=== PATIENT | male | born 1960 | race Caucasian/White ===

== ENCOUNTER 2020-07-01 15:16 | Outpatient (REF) | payer BC, SELFPAY | END 2020-07-01 15:17 | disposition home or self-care (01) | LOC: HO.LAB 15:16 | PROVIDERS: Visit Provider Urology | DX: R97.20 Elevated prostate specific antigen [PSA] (principal) | CPT/HCPCS: 84153 ==

== ENCOUNTER 2021-09-07 15:23 | Outpatient (REF) | payer BC, SELFPAY ==
[2021-09-07 16:48] LABS: PSA,Total (Free>4and<10) 2.92 ng/mL (0.00-4.00)
== END 2021-09-07 15:24 | disposition home or self-care (01) ==
LOC: HO.LAB 15:23
PROVIDERS: Visit Provider Urology
DX: R97.20 Elevated prostate specific antigen [PSA] (principal); Z12.5 Encounter for screening for malignant neoplasm of prostate
CPT/HCPCS: 36415; 84153

== ENCOUNTER → 2021-09-10 08:24 | Outpatient (BNVA) | payer BC, SELFPAY | PROVIDERS: Visit Provider Urology ==

== ENCOUNTER 2022-09-05 13:12 | Outpatient (REF) | payer BC, SELFPAY ==
[2022-09-05 15:12] LABS: Prostate Specific Antigen 5.12 ng/mL (<0.05-4.0)
== END 2022-09-05 13:13 | disposition home or self-care (01) ==
LOC: HO.LAB 13:12
PROVIDERS: Visit Provider Urology
DX: Z12.5 Encounter for screening for malignant neoplasm of prostate (principal); N40.1 Benign prostatic hyperplasia with lower urinary tract symptoms; N13.8 Other obstructive and reflux uropathy
CPT/HCPCS: 36415; 84153

== ENCOUNTER → 2022-09-09 09:47 | Outpatient (BNVA) | payer BC, SELFPAY | PROVIDERS: PCP Physician Assistant; Visit Provider Urology | DX: R97.20 Elevated prostate specific antigen [PSA] (principal) | CPT/HCPCS: 51798 ==

== ENCOUNTER 2022-10-25 11:42 | Outpatient (REF) | payer BC, SELFPAY ==
--- NOTE | ~2022-10-25 | US_ITS ---
EXAMINATION: US PELVIS LIMITED (BLADDER) CLINICAL INFORMATION: Poor urinary stream. COMPARISON: None available. TECHNIQUE: Real-time imaging of the bladder. Technically somewhat limited study secondary to patient movement from discomfort/over-distension. FINDINGS: The bladder is well-distended. There is a 1.6 cm mobile stone noted within the bladder. Bilateral ureteral jets are demonstrated. Prevoid bladder volume is 314 mL. Postvoid bladder volume is 100 mL. The prostate gland measures 6.1 x 4.9 x 5.0 cm for a volume of 78 mL. US/US bladder IMPRESSION: 1. 1.6 cm mobile stone within the bladder. 2. Prominent post void bladder residual of 78 mL. 3. Enlarged prostate gland.
== END 2022-10-25 11:43 | disposition home or self-care (01) ==
LOC: HO.US 11:42
PROVIDERS: PCP Physician Assistant; Visit Provider Urology
DX: N40.1 Benign prostatic hyperplasia with lower urinary tract symptoms (principal); R39.12 Poor urinary stream; N13.8 Other obstructive and reflux uropathy
CPT/HCPCS: 76857

== ENCOUNTER 2022-11-04 16:55 | Outpatient (REF) | payer BC, SELFPAY ==
[2022-11-04 18:07] LABS: PSA,Total (Free>4and<10) 3.27 ng/mL (0.00-4.00)
== END 2022-11-04 16:56 | disposition home or self-care (01) ==
LOC: HO.LAB 16:55
PROVIDERS: PCP Physician Assistant; Visit Provider Urology
DX: R97.20 Elevated prostate specific antigen [PSA] (principal); Z12.5 Encounter for screening for malignant neoplasm of prostate
CPT/HCPCS: 36415; 84153

== ENCOUNTER → 2022-11-08 14:09 | Outpatient (BNVA) | payer BC, SELFPAY | PROVIDERS: PCP Physician Assistant; Visit Provider Urology | DX: Z13.89 Encounter for screening for other disorder (principal) ==

== ENCOUNTER → 2023-01-03 13:57 | Outpatient (BNVA) | payer BC, SELFPAY | PROVIDERS: PCP Physician Assistant; Visit Provider Urology | DX: N21.0 Calculus in bladder (principal); N40.1 Benign prostatic hyperplasia with lower urinary tract symptoms; N13.8 Other obstructive and reflux uropathy | CPT/HCPCS: 51798 ==

== ENCOUNTER 2023-03-15 13:07 | Outpatient (AMB) | payer BC, SELFPAY ==
--- NOTE | 2023-03-15 13:07 | A.OFFVIS_ITS ---
Intake Intake Visit Reasons: H&P (greenlight 04/03) Allergies No Known Allergies Allergy (Verified 03/15/23 13:08) HPI HPI Comments History of Present Illness Details Demetrio is a very pleasant male. He is a patient of Dr Yarbrough. He seen for the following urologic conditions - lower urinary tract symptoms Telemedicine Evaluation 15 min Consultation DoximFlint Catarina Video attempted Upcoming surgery Questions answered Also needs to contact PCP regarding yearly evaluation and colonoscopy Minimal issues since last appointment Preop assessment 1.6 cm bladder stone Will need bladder stone removal and prostate incision Bladder ultrasound - There is a 1.6 cm mobile stone noted within the bladder. Bilateral ureteral jets are demonstrated. Prevoid bladder volume is 314 mL. Postvoid bladder volume is 100 mL. The prostate gland measures 6.1 x 4.9 x 5.0 cm for a volume of 78 mL Lower urinary tract symptoms Primarily nocturia with some degree of bladder outlet obstruction - progressive with increased nocturia Current medications - terazosin Prior medications include tamsulosin PSA 2.5-3.5 09/28 2.9, 08/29 5.1, 10/27 3.3 Prior ETOH use Therapeutic plan - add finasteride and schedule procedure FOR[facility] Medical History Elevated prostate specific antigen [PSA] Surgical History History of arthroscopic knee surgery History of prostate biopsy Family History Father No problems noted. Mother Breast cancer Review of Systems Const All systems reviewed & are unremarkable except as noted in HPI and below Reports no additional complaints Resp Reports no additional complaints GI Reports no additional complaints Reports as per HPI Musc Reports no additional complaints Physical Exam Telemedicine evaluation Appropriate responses Regular breathing rate and rhythm HEENT Head: Yes normal to inspection Ears: hearing grossly normal bilaterally Eyes General: appearance normal, both eyes and all related structures Neck Neck: Yes normal visual inspection Chest Chest palpation & inspection: normal inspection of the chest Resp Effort & Inspection: normal respiratory effort and able to speak in complete sentences Assessment & Plan Assessment & Plan (1) Bladder stones: Code(s): N21.0 - Calculus in bladder (2) BPH w urinary obs/LUTS: Code(s): N40.1 - Benign prostatic hyperplasia with lower urinary tract symptoms; N13.8 - Other obstructive and reflux uropathy Plan Risks, benefits and alternatives to therapy were discussed. These include but are not limited to infection, bleeding, damage to local organs and tissues, need for further interventions. Anesthetic risks regarding cardiac arrhythmia, blood clots, and potential mortality were discussed. The patient understands the typical recovery time and the outpatient nature of the procedure. After consideration of these risks the patient gives full informed consent and they wish to move ahead with the procedure. Bladder stone removal with incision of prostate Patient Instructions: Imaging studies, laboratory and physical exam results were discussed and reviewed in detail. No major barriers to patient understanding were identified. An opportunity to ask questions regarding the treatment plan was provided. All questions were answered. The patient expressed understanding and agreement with the above treatment plan. The patient is aware they should contact our office by phone for worsening of their current condition or the appearance of new urologic symptoms. Compliance is encouraged with any medications and followup testing that is ordered. It is a privilege to participate in the urologic care of your patient. If you have any questions or concerns regarding treatment for the above conditions, or other urologic issues, please do not hesitate to contact me. The office telephone contact is [phone]. This note is constructed using voice recognition software. While every effort has been made to ensure accuracy machinery dismantler errors may have been included. Yours sincerely, Dr Irvin Tavares MD, [facility] - Urology Providers of Expert, Compassionate Care for the Genitourinary System Telehealth Telehealth Location of provider rendering services: practice address Location of patient: address on file Patient Identification confirmed using: Name, : Yes Telehealth method: video Patient verbally consented to treatment: Yes Patient verbally consented to billing insurance company: Yes Patient informed of any privacy concerns related to visit: Yes Coding Level of Care Code Tele Est Pt Level 3 (01598) Diagnoses Bladder stones N21.0 BPH w urinary obs/LUTS N40.1; N13.8
== END 2023-03-15 13:47 | disposition home or self-care (01) ==
LOC: HO.HUSH 13:07
PROVIDERS: PCP Physician Assistant; Visit Provider Urology
DX: N21.0 Calculus in bladder (principal); N40.1 Benign prostatic hyperplasia with lower urinary tract symptoms; N13.8 Other obstructive and reflux uropathy
CPT/HCPCS: 99024

== ENCOUNTER → 2023-03-15 13:07 | Outpatient (BNVA) | payer BC, SELFPAY | PROVIDERS: PCP Physician Assistant; Visit Provider Urology ==

== ENCOUNTER 2023-04-03 05:59 | Day surgery (SDC) | payer BC, SELFPAY ==
--- NOTE | 2023-03-31 12:35 | HO.ANESPROP2 ---
Documented by User: Arlyn Kenyon NP 03/31/23 12:35 HPI - Anesthesia Eval Consult details Narrative: 63yo M for Cystoscopy, Transurethral Incision Prost with green light laser PMFSH Active Problems Active Problems: All Active Problems (Updated 03/30/23 @ 09:36 by Riri Bello RN) BPH w urinary obs/LUTS (Acute) Bladder stones (Acute) Elevated prostate specific antigen [PSA] (Acute) Past Medical History Medical History (Updated 03/30/23 @ 09:36 by Riri Bello RN) Back pain Depression Elevated prostate specific antigen [PSA] Family History Family History Father No problems noted. Mother Breast cancer Surgical History Surgical History (Updated 03/30/23 @ 09:36 by Riri Bello RN) H/O colonoscopy History of arthroscopic knee surgery History of prostate biopsy Social History Social History (Updated 03/30/23 @ 09:37 by Riri Bello RN) Patient Tobacco Use Status: Never used Tobacco Tobacco use type: Cigar Use of substances other than those prescribed or required for medical reasons: No Advance Directives: No Advance Directives Information Provided: Yes Nutrition Risks: No Nutritional Risk Meds Allergies Allergy/AdvReac Type Severity Reaction Status Date / Time No Known Allergies Allergy Verified 03/15/23 13:08 Home Medications Medication Instructions Recorded Confirmed Last Taken Type sertraline 25 mg tablet 25 mg PO DAILY 05/09/20 03/30/23 04/03/23 History 25 mg Exam Exam Date and Time: March 31, 2023 1235 Assessment and Plan Assessment Anesthesia Assessment: Chart Reviewed Documented by User: Anson Noguera MD 04/03/23 07:39 PMFSH Past Medical History Medical History (Updated 03/30/23 @ 09:36 by Riri Bello RN) Back pain Depression Elevated prostate specific antigen [PSA] Family History Family History Father No problems noted. Mother Breast cancer Family history of problems with anesthesia: No Surgical History Surgical History (Updated 03/30/23 @ 09:36 by Riri Bello RN) H/O colonoscopy History of arthroscopic knee surgery History of prostate biopsy History of Problems with Anesthesia: No Social History Social History (Updated 03/30/23 @ 09:37 by Riri Bello RN) Patient Tobacco Use Status: Never used Tobacco Tobacco use type: Cigar Use of substances other than those prescribed or required for medical reasons: No Advance Directives: No Advance Directives Information Provided: Yes Nutrition Risks: No Nutritional Risk Meds Allergies Allergy/AdvReac Type Severity Reaction Status Date / Time No Known Allergies Allergy Verified 03/15/23 13:08 Home Medications Medication Instructions Recorded Confirmed Last Taken Type sertraline 25 mg tablet 25 mg PO DAILY 05/09/20 03/30/23 04/03/23 History 25 mg Exam Airway Mallampati Class: I TM Dist: >3cm Neck ROM: Full Loose/Missing/Broken Teeth: No Heart: ok Lungs: ok Assessment and Plan Assessment Anesthesia Assessment: Anesthesia Plan Discussed Final Anesthetic Review Family History of Problems with Anesthesia: No History of Problems with Anesthesia: No NPO: Yes ASA Class: II Final Preanesthetic Review: No Changes in Pt Med Stat, Meds/Allgs Chart Reviewed, Consent Obtained/Reviewed and Anes Risks/Benef Reviewed Patient Risk: Intermediate Procedure Risk: Low Anesthetic Plan Anesthetic Plan: GA and Agree w/ Assess. and Plan Disposition: Standard PACU
[2023-04-03] VITALS (7 sets, daily range): BP systolic 110–133; BP diastolic 69–79; PULSE 54–69; RESP 14–18; TEMP 36.1–36.5; O2SAT 94–99; BMI 28.6
[2023-04-03] MEDS: Lactated Ringers 1,000 ML 100 ML IVCONT (06:32)
--- NOTE | 2023-04-03 07:45 | P.HPSUR_ITS ---
Pre-Procedural Eval Section A Date of Service: 04/03/23 The patient is an INPATIENT: No Changes since office visit: No Cold of Flu in the past 2 weeks, No New Medical Problems, No Changes in Medication and No Patient answered all questions The History & Physical has been completed within 30 days and I have reviewed it.: Yes Section B Chief Complaint: Calculus in bladder,Benign prostatic hyperplasia Relevant Social History: None Present Medications: see Short Stay Collaborative assessment Medical History: Significant History History of Previous Operations: No relevant previous surgery Allergies: Allergies Allergy/AdvReac Type Severity Reaction Status Date / Time No Known Allergies Allergy Verified 03/15/23 13:08 Review of Systems Sugical H&P ROS: Negative: Constitution, Cardiovascular, Respiratory, Ne urological, Psychiatric, Hem-Onc, Allergic/Immunologic, Gastrointestinal, Genitourinary, Musculoskeletal, Integumentary, Endocrine and Eyes/Ears/Nose/Throat Exam Surgical H&P Exam: Normal: HEENT, Normal: Heart, Normal: Lungs, Normal: Extremities, Normal: Abdomen, Normal: Skin and Normal: Neurological Plan Diagnosis/Plan: Unchanged I have reviewed the history and physical and performed a pertinent physical examination on my patient. No changes have occurred unless specified. Time Spent With Patient Time: Total time managing care of this patient today ____ minutes.
--- NOTE | 2023-04-03 08:53 | W.PM.OPN ---
Operative Note Operative Note Date of Service: 04/03/23 Narrative: PreOperative Diagnosis: Bladder outlet obstruction with bladder stone Post Operative Diagnosis: Bladder outlet obstruction with bladder stone Procedure: GreenLight Laser Enucleation of the prostate, laser of bladder stone Surgeon: Dr Irvin Tavares Anesthesia: General History of bladder outlet obstruction. Treated with alpha-eloy and other medications. Still with symptoms. On cystoscopy in office has high bladder neck with impinging left lateral lobe, 1 in bladder stone. Recommendation for prostate procedure with laser enucleation of prostate and removal of bladder stone Risks and benefits have been discussed. Focus was placed on development of retrograde ejaculation which is a normal part of this procedure. Procedure: After informed consent was verified the patient was brought to the operating room and placed in a supine position. Anesthesia was administered per protocol. Patient was placed in modified dorsal lithotomy position and prepped and draped in a sterile fashion. Safety pause time-out was confirmed. Antibiotics have been given. A Twenty-four Ukrainian laser cystoscope was inserted per urethra. No abnormalities were found of the anterior and bulbar urethra. The bladder was examined and both ureteric orifices were seen in their normal positions away from the area of interest. Using a GreenLight laser with settings of 80 w incisions were made at the 5 and 7 o'clock position. The incisions were taken down from the bladder neck down to the level of the veru. These were gradually deepened in order to define the lateral aspects of the median lobe area. Once clearly defined they will also extended in the lateral directions in order to create a deep groove. The median lobe was then ablated and enucleated tissue released into the bladder with the laser power increased to 120 W. Once the median lobe area had been cleared attention was directed to the lateral lobes. Starting with the patient's left lateral lobe. First the 05:00 o'clock groove was further developed. This was moved in the lateral direction to undermine the tissue on the lateral side running from the bladder neck to the prostate apex. Focus was then placed on the laser at the 1 o'clock position to developing a secondary groove down to the level of bladder fibers. The creation of a second deep groove defined a segment of intervening tissue similar to a slice of orange. At the apex of the prostate the 2 grooves were linked the us releasing the intervening tissue. This tissue was then removed with a combination of enucleation and ablation working from the apex toward the bladder neck. Minimal impingement on right side. Undermining performed on 07:00 o'clock lateral groove. After the majority of tissue had been debulked remnant tissue was ablated with the side fire laser and the curve of the prostate followed up each side wall clearly defining the anterior remnant strip that remained between the 11 and 1 o'clock positions. Attention was directed to the bladder stone. Using a holmium laser with bladder stone settings the 1 in bladder stone was broken into small pieces in order for removal. When this was had been completed debris and pieces of prostate were removed from the bladder with irrigation. Both ureteric orifices were reviewed again in shown to be patent in away from any areas of energy damage. The apical area was reviewed in any stray ooze was controlled. A 22 Ukrainian 30 cc balloon Ca catheter was placed over a stylet into the bladder. Clear efflux was obtained upopn irrigation with a Malia piston syringe. 30 cc was placed in the balloon and gentle traction was placed. A snap was used to hold tension on the catheter to control bleeding during patient moved and transported. A drainage bag was placed. Once transportation is complete to the PACU the snap will be removed. The patient tolerated the procedure well, he was extubated in the operating and transferred in a stable condition to the recovery area. Total Power 114 kW Lasing time 17:17 Pathology: Prostate tissue with bladder stone Drains: Ca catheter
[2023-04-03] MEDS: oxyCODONE HCl Immed Release 5 MG TABLET PO (09:14)
[2023-04-03] MEDS: Acetaminophen 325 MG TABLET 650 MG PO (09:15)
== END 2023-04-03 10:21 | disposition home or self-care (01) ==
PROVIDERS: PCP Physician Assistant; Visit Provider Urology
PROC: (CPT 52649; principal; 2023-04-03 07:30)
DX: N21.0 Calculus in bladder (principal); N40.1 Benign prostatic hyperplasia with lower urinary tract symptoms; N13.8 Other obstructive and reflux uropathy; R35.1 Nocturia; Z98.890 Other specified postprocedural states; Z79.899 Other long term (current) drug therapy
CPT/HCPCS: 52649; 52317; 88305; J1956; J2250; J3010

== ENCOUNTER → 2023-04-03 05:59 | Outpatient (BNV) | payer BC, SELFPAY | PROVIDERS: PCP Physician Assistant; Visit Provider Urology | DX: N21.0 Calculus in bladder (principal); N40.1 Benign prostatic hyperplasia with lower urinary tract symptoms | CPT/HCPCS: 52317; 52649 ==

== ENCOUNTER → 2023-04-04 09:34 | Outpatient (BNVA) | payer BC, SELFPAY | PROVIDERS: PCP Physician Assistant; Visit Provider Urology ==

== ENCOUNTER 2023-05-18 09:34 | Outpatient (AMB) | payer BC, SELFPAY ==
--- NOTE | 2023-05-18 09:35 | MHC.OFFVIS ---
Intake Intake Visit Reasons: 6 week (TUIP) Intake Note: Patient is Present for Follow Up TURP Urology Medication: Finasteride, Terazosin Antibiotic Allergies: None Blood Thinners: None Pharmacy: [facility] PVR: 0 Allergies No Known Allergies Allergy (Verified 05/18/23 09:39) Medication List - Last Reconciled 05/18/23 by Irvin Tavares MD finasteride 5 mg PO DAILY 90 days sertraline 25 mg PO DAILY terazosin 5 mg PO BEDTIME 90 days HPI HPI Comments History of Present Illness Details Demetrio is a very pleasant male. He is a patient of Dr Yarbrough. He seen for the following urologic conditions - lower urinary tract symptoms Follow-up for bladder emptying and bladder stone Underwent TUIP 03/29 Significant improvement in stream 6 month follow-up PSA Bladder stone Imaging - 03/29 There is a 1.6 cm mobile stone noted within the bladder. Bilateral ureteral jets are demonstrated. Prevoid bladder volume is 314 mL. Postvoid bladder volume is 100 mL. The prostate gland measures 6.1 x 4.9 x 5.0 cm for a volume of 78 mL Lower urinary tract symptoms Primarily nocturia with some degree of bladder outlet obstruction - progressive with increased nocturia Current medications - terazosin Prior medications include tamsulosin PSA 2.5-3.5 09/28 2.9, 08/29 5.1, 10/27 3.3 Prior ETOH use Therapeutic plan - may stop finasteride PFSH Medical History (Updated 03/30/23 @ 09:36 by Riri Bello RN) Back pain Depression Elevated prostate specific antigen [PSA] Surgical History (Updated 03/30/23 @ 09:36 by Riri Bello RN) H/O colonoscopy History of arthroscopic knee surgery History of prostate biopsy Family History Father No problems noted. Mother Breast cancer Social History (Updated 03/30/23 @ 09:37 by Riri Bello RN) Patient Tobacco Use Status: Never used Tobacco Tobacco use type: Cigar Review of Systems Const Denies chills and Denies fever(s) Card Reports no additional complaints and Denies syncope Resp Denies cough GI Denies abdominal pain and Denies heartburn Reports as per HPI and Denies change in libido Neuro Denies syncope Psych Denies change in libido Endo Denies change in libido Physical Exam Const General: cooperative, healthy appearing, comfortable and no acute distress Orientation/consciousness: patient oriented x3 HEENT Face and sinus: Yes normal facial exam Mouth: moist mucous membranes Neck Neck: Yes normal visual inspection, Yes full ROM and Yes trachea midline Chest Chest palpation & inspection: normal inspection of the chest Resp Effort & Inspection: normal respiratory effort, able to speak in complete sentences and no respiratory distress GI Inspection: Yes normal to inspection Back/Spine/Pelvis Cervical Spine: normal cervical lordosis Thoracic/Lumbar Spine: thoracic and lumbar spine normal to inspection Skin General skin exam: no rashes or lesions noted Neuro General: patient oriented x3, gait normal, tone normal and moves all extremities Extrem General: Yes normal to inspection and Yes capillary refill normal Office Procedures Post Void Residual Post Residual Void Post Void Residual (PVR): 0 01054-Dicd Void Residual by ultrasound Results AMB Urinalysis, Automated UA Leukoctes 500 Huan/uL Last Edit by RUFUS Fenton on 05/18/23 09:47 UA Nitrite Negative Last Edit by RUFUS Fenton on 05/18/23 09:47 UA Urobilinogen 0.2 mg/dL Last Edit by Fabienne Rossi Jermaine on 05/18/23 09:47 UA Protein 100 mg/dL Last Edit by RUFUS Fenton on 05/18/23 09:47 UA pH 5.0 Last Edit by LINDEN Fenton on 05/18/23 09:47 UA Blood 200 Rafa/uL Last Edit by RUFUS Fenton on 05/18/23 09:47 UA Specific [place] 1.030 Last Edit by RUFUS Fenton on 05/18/23 09:47 UA Ketone Negative Last Edit by RUFUS Fenton on 05/18/23 09:47 UA Bilirubin 0 mg/dL Last Edit by RUFUS Fenton on 05/18/23 09:47 UA Glucose 0 mg/dL Last Edit by LINDEN Fenton on 05/18/23 09:47 Assessment & Plan Assessment & Plan (1) Elevated prostate specific antigen [PSA]: Code(s): R97.20 - Elevated prostate specific antigen [PSA] (2) BPH w urinary obs/LUTS: Code(s): N40.1 - Benign prostatic hyperplasia with lower urinary tract symptoms; N13.8 - Other obstructive and reflux uropathy (3) Bladder stones: Code(s): N21.0 - Calculus in bladder Plan Six month follow-up PSA Orders: Orders AMB Post Void Residual by ultrasound Today N13.8 - Other obstructive and reflux uropathy, N40.1 - Benign prostatic hyperplasia with lower urinary tract symptoms AMB Urinalysis Automated Today Z13.9 - Encounter for screening, unspecified Prostate Specific Antigen 6 Months R97.20 - Elevated prostate specific antigen [PSA] Patient Instructions: Imaging studies, laboratory and physical exam results were discussed and reviewed in detail. No major barriers to patient understanding were identified. An opportunity to ask questions regarding the treatment plan was provided. All questions were answered. The patient expressed understanding and agreement with the above treatment plan. The patient is aware they should contact our office by phone for worsening of their current condition or the appearance of new urologic symptoms. Compliance is encouraged with any medications and followup testing that is ordered. It is a privilege to participate in the urologic care of your patient. If you have any questions or concerns regarding treatment for the above conditions, or other urologic issues, please do not hesitate to contact me. The office telephone contact is [phone]. This note is constructed using voice recognition software. While every effort has been made to ensure accuracy vp marketing errors may have been included. Yours sincerely, Dr Irvin Tavares MD, [facility] - Urology Providers of Expert, Compassionate Care for the Genitourinary System Coding Level of Care Code Est Pt Level 3 (71422) Diagnoses Elevated prostate specific antigen [PSA] R97.20 BPH w urinary obs/LUTS N40.1; N13.8 Bladder stones N21.0 CPT Codes Post Residual Void - PVR CPT Code: 42964-Pwvm Void Residual by ultrasound ([id number])
== END 2023-05-18 09:50 | disposition home or self-care (01) ==
PROVIDERS: PCP Physician Assistant; Visit Provider Urology
DX: R97.20 Elevated prostate specific antigen [PSA] (principal); N40.1 Benign prostatic hyperplasia with lower urinary tract symptoms; N13.8 Other obstructive and reflux uropathy; N21.0 Calculus in bladder; Z13.9 Encounter for screening, unspecified
CPT/HCPCS: 99024

== ENCOUNTER → 2023-05-18 09:34 | Outpatient (BNVA) | payer BC, SELFPAY | PROVIDERS: PCP Physician Assistant; Visit Provider Urology | DX: N21.0 Calculus in bladder (principal); R97.20 Elevated prostate specific antigen [PSA]; N40.1 Benign prostatic hyperplasia with lower urinary tract symptoms; N13.8 Other obstructive and reflux uropathy | CPT/HCPCS: 51798; 81003 ==

== ENCOUNTER 2023-11-13 17:23 | Outpatient (REF) | payer BC, SELFPAY ==
[2023-11-13 18:16] LABS: Prostate Specific Antigen 2.66 ng/mL (<0.05-4.0)
== END 2023-11-13 17:24 | disposition home or self-care (01) ==
LOC: HO.LAB 17:23
PROVIDERS: PCP Physician Assistant; Visit Provider Urology
DX: Z12.5 Encounter for screening for malignant neoplasm of prostate (principal); R97.20 Elevated prostate specific antigen [PSA]
CPT/HCPCS: 36415; 84153

== ENCOUNTER 2023-11-17 13:38 | Outpatient (AMB) | payer BC, SELFPAY ==
--- NOTE | 2023-11-17 13:48 | A.OFFVIS_ITS ---
Intake Intake Visit Reasons: 6M PSA/PVR(set)Confirmed Intake Note: Patient is Present for Follow Up Urology Medication: Finasteride, Terazosin Antibiotic Allergies: None Blood Thinners:None [facility]acy: [facility] PVR: 0ml Allergies No Known Allergies Allergy (Verified 11/17/23 13:51) Medication List - Last Reconciled 11/17/23 by Irvin Tavares MD sertraline 25 mg PO DAILY terazosin 5 mg PO BEDTIME 90 days HPI HPI Comments History of Present Illness Details Demetrio is a very pleasant male. He is a patient of Dr Yarbrough. He seen for the following urologic conditions - lower urinary tract symptoms Six-month follow-up for bladder emptying and bladder stone Underwent TUIP 03/29 Significant improvement in stream Bladder stone Imaging - 03/29 There is a 1.6 cm mobile stone no laverne within the bladder. Bilateral ureteral jets are demonstrated. Prevoid bladder volume is 314 mL. Postvoid bladder volume is 100 mL. The prostate gland measures 6.1 x 4.9 x 5.0 cm for a volume of 78 mL Lower urinary tract symptoms Primarily nocturia with some degree of bladder outlet obstruction - progressive with increased nocturia Current medications - terazosin and finasteride Prior medications include tamsulosin PSA 2.5-3.5 09/28 2.9, 08/29 5.1, 10/27 3.3, 11/28 2.6 Prior ETOH use PFSH Medical History Back pain Depression Elevated prostate specific antigen [PSA] Surgical History H/O colonoscopy History of arthroscopic knee surgery History of prostate biopsy Family History Father No problems noted. Mother Breast cancer Social History Patient Tobacco Use Status: Never used Tobacco Tobacco use type: Cigar Review of Systems Const Denies chills and Denies fever(s) Card Reports no additional complaints and Denies syncope Resp Denies cough GI Denies abdominal pain and Denies heartburn Reports as per HPI and Denies change in libido Neuro Denies syncope Psych Denies change in libido Endo Denies change in libido Physical Exam Const General: cooperative, healthy appearing, comfortable and no acute distress Orientation/consciousness: patient oriented x3 HEENT Face and sinus: Yes normal facial exam Mouth: moist mucous membranes Neck Neck: Yes normal visual inspection, Yes full ROM and Yes trachea midline Chest Chest palpation & inspection: normal inspection of the chest Resp Effort & Inspection: normal respiratory effort, able to speak in complete sentences and no respiratory distress GI Inspection: Yes normal to inspection Back/Spine/Pelvis Cervical Spine: normal cervical lordosis Thoracic/Lumbar Spine: thoracic and lumbar spine normal to inspection Skin General skin exam: no rashes or lesions noted Neuro General: patient oriented x3, gait normal, tone normal and moves all extremities Extrem General: Yes normal to inspection and Yes capillary refill normal Office Procedures Post Void Residual Post Residual Void Post Void Residual (PVR): 0 57543-[id number] Void Residual by ultrasound Assessment & Plan Assessment & Plan (1) Bladder stones: Code(s): N21.0 - Calculus in bladder (2) BPH w urinary obs/LUTS: Code(s): N40.1 - Benign prostatic hyperplasia with lower urinary tract symptoms; N13.8 - Other obstructive and reflux uropathy Plan Twelve month follow-up PSA Orders: Orders AMB Post Void Residual by ultrasound Today N13.8 - Other obstructive and reflux uropathy, N40.1 - Benign prostatic hyperplasia with lower urinary tract symptoms Prostate Specific Antigen 364 Days R97.20 - Elevated prostate specific antigen [PSA] Medications: Discontinued finasteride Discontinued Reason: Patient Completed Course 5 mg PO DAILY 90 days 90 tabs 1RF N13.8 - Other obstructive and reflux uropathy, N40.1 - Benign prostatic hyperplasia with lower urinary tract symptoms Patient Instructions: Imaging studies, laboratory and physical exam results were discussed and reviewed in detail. No major barriers to patient understanding were identified. An opportunity to ask questions regarding the treatment plan was provided. All questions were answered. The patient expressed understanding and agreement with the above treatment plan. The patient is aware they should contact our office by phone for worsening of their current condition or the appearance of new urologic symptoms. Compliance is encouraged with any medications and followup testing that is ordered. It is a privilege to participate in the urologic care of your patient. If you have any questions or concerns regarding treatment for the above conditions, or other urologic issues, please do not hesitate to contact me. The office telephone contact is [phone]. This note is constructed using voice recognition software. While every effort has been made to ensure accuracy clinical project leader errors may have been included. Yours sincerely, Dr Irvin Tavares MD, [facility] - Urology Providers of Expert, Compassionate Care for the Genitourinary System Coding Level of Care Code Est Pt Level 3 (25994) Diagnoses Bladder stones N21.0 BPH w urinary obs/LUTS N40.1; N13.8 CPT Codes Post Residual Void - PVR CPT Code: 32984-Tytx Void Residual by ultrasound ([id number])
== END 2023-11-17 14:07 | disposition home or self-care (01) ==
PROVIDERS: PCP Physician Assistant; Visit Provider Urology
DX: N21.0 Calculus in bladder (principal); N40.1 Benign prostatic hyperplasia with lower urinary tract symptoms; N13.8 Other obstructive and reflux uropathy
CPT/HCPCS: 99213

== ENCOUNTER → 2023-11-17 13:38 | Outpatient (BNVA) | payer BC, SELFPAY | PROVIDERS: PCP Physician Assistant; Visit Provider Urology | DX: N21.0 Calculus in bladder (principal); N40.1 Benign prostatic hyperplasia with lower urinary tract symptoms; N13.8 Other obstructive and reflux uropathy | CPT/HCPCS: 51798 ==

== ENCOUNTER 2023-12-19 16:53 | Outpatient (REF) | payer BC, SELFPAY ==
[2023-12-19 17:23] LABS: Hematocrit 47.1 % (42.0-52.0); Hemoglobin 15.7 g/dl (14.0-18.0); Mean Corpuscular HGB Conc 33.3 g/dl (31.0-36.0); Mean Corpuscular Hemoglobin 30.2 pg (27.0-33.0); Mean Corpuscular Volume 90.6 fL (80.0-98.0); Mean Platelet Volume 9.6 fL (9.4-12.4); Platelet Count 200 X10*3/uL (160-400); Red Cell Distribution Width 13.8 % (11.0-16.0)
[2023-12-19 18:24] LABS: WBC ABN SCTR FOR CBC 1
[2023-12-19 18:46] LABS: Alanine Aminotransferase 18 U/L (0-40); Albumin Level 4.4 g/dL (3.5-5.0); Alkaline Phosphatase 84 U/L (39-117); Anion Gap 16 (12-20); Aspartate Amino Transferase 22 U/L (5-37); Bilirubin Total 1.8 mg/dL (0.0-1.0); Blood Urea Nitrogen 15 mg/dL (9-16); Calcium 9.8 mg/dL (8.4-10.2); Carbon Dioxide 24 mmol/L (22-29); Chloride 107 mmol/L (96-108); Cholesterol 183 mg/dL (<200); Estimated Glomerular Filt Rate > 60; Glucose Random 79 mg/dL (60-115); HDL Cholesterol 61 mg/dL (>40); LDL Cholesterol Calculated 110 mg/dL (<100); Potassium 3.8 mmol/L (3.3-5.1); Sodium 143 mmol/L (135-145); Total Protein 7.6 g/dL (6.5-8.0); Triglycerides 60 mg/dL (<150)
[2023-12-19 19:42] LABS: Atypical Lymphs Percent Manual 1 % (0-6); Band Neutrophils Percent 1 % (3-5); Lymphocytes Percent Manual 82 % (20-40); Monocytes Percent Manual 2 % (2-11); Neutrophils Percent Manual 14 % (45-73)
[2023-12-19 19:43] LABS: RBC Morphology NOTED
[2023-12-19 19:44] LABS: Acanthocytes 1+ (0-2) /OIF; Platelet Estimate NORMAL (NORMAL); Platelet Morphology Comment NORMAL
[2023-12-19 20:13] LABS: Atypical Lymph Absolute Manual 0.5 x10*3/uL; Neutrophils Absolute Manual 7.9 X10*3/uL (2.0-8.3); White Blood Count 52.4 X10*3/uL (4.8-10.8)
== END 2023-12-19 16:54 | disposition home or self-care (01) ==
LOC: HO.LAB 16:53
PROVIDERS: PCP Nurse Practitioner Family; Visit Provider Nurse Practitioner Family
DX: D72.820 Lymphocytosis (symptomatic) (principal); F33.9 Major depressive disorder, recurrent, unspecified; J30.89 Other allergic rhinitis; M54.32 Sciatica, left side
CPT/HCPCS: 36415; 80053; 80061; 85007; 85027

== ENCOUNTER 2024-01-03 16:39 | Outpatient (REF) | payer BC, SELFPAY ==
[2024-01-03 17:04] LABS: Basophils Absolute Auto 0.2 X10*3/uL (0.0-0.2); Basophils Percent Auto 0.5 % (0-2); Eosinophils Absolute Auto 0.3 X10*3/uL (0.0-0.4); Eosinophils Percent Auto 0.5 % (0-4); Hematocrit 45.1 % (42.0-52.0); Hemoglobin 14.9 g/dl (14.0-18.0); Imm Gran Abs Auto 0.13 X10*3/uL (0.00-0.03); Imm Gran Pct Auto 0.3 % (0.0-0.4); Lymphocytes Percent Auto 86.1 % (20-40); MANUAL DIFF FLAG SCAN; Mean Corpuscular Hemoglobin 29.7 pg (27.0-33.0); Mean Platelet Volume 9.5 fL (9.4-12.4); Monocytes Absolute Auto 0.7 X10*3/uL (0.1-1.2); Monocytes Percent Auto 1.4 % (2-11); Neutrophils Absolute Auto 5.5 x10*3/uL (2.0-8.3); Neutrophils Percent Auto 11.2 % (45-73); Platelet Count 180 X10*3/uL (160-400); Red Blood Count 5.01 X10*6/uL (4.60-5.80); Red Cell Distribution Width 14.2 % (11.0-16.0); SCAN SMEAR FLAG 1
[2024-01-03 17:27] LABS: Lymphocytes Absolute Auto 41.7 X10*3/uL (1.2-4.9); White Blood Count 48.5 X10*3/uL (4.8-10.8)
[2024-01-03 17:54] LABS: SLIDE REVIEW VERIFIED
== END 2024-01-03 16:40 | disposition home or self-care (01) ==
LOC: HO.LAB 16:39
PROVIDERS: PCP Nurse Practitioner Family; Visit Provider Nurse Practitioner Family
DX: D72.829 Elevated white blood cell count, unspecified (principal)
CPT/HCPCS: 36415; 85025

== ENCOUNTER 2024-11-06 16:57 | Outpatient (REF) | payer MEDICARE, SELFPAY ==
--- OUTSIDE RECORDS SUMMARY | 2024-11-06 18:11 | XMS_ITS | Encounter Summary ---
Author Organization [facility] Address [address] [place] [address] Care Team Providers Care Supervisor Coal Handling Name Role Phone Unavailable Primary Care Provider Unavailabl e Encounter Details Date Type Department Care Team (Late st Contact Info) Description 06/26/2020 Lab Requisition EM Lab DOC: Dustin Fry [address] [place] [phone] Imtiaz Cosby PA-C [address] [place] [address] [phone] Encounter for laboratory testing for COVID-19 virus Social History Tobacco Use Types Packs/Day Years Used Date Smoking Tobacco: Never Assessed Sex and Gender Information Value Date Recorded Sex Assigned at Not on file Gender Identity Not on file Sexual Orientation Not on file documented as of this encounter Plan of Treatment Not on file documented as of this encounter Procedures Procedure Name Priority Date/Time Associated Diagnosis Comments (REPORT) SARS COV-2 RNA (COVID-19), QUAL Routine 06/26/2020 7:41 AM EST Encounter for laboratory testing for COVID-19 virus [ICD-10-CM] documented in this encounter Results * SARS CoV-2 RNA (COVID-19), Qual (06/26/2020 7:41 AM EST) Pathologist [facility] SARS CoV 2 RNA, Qual NOT DETECTED NOT DETECTED 06/30/2020 12:00 PM EST [facility] Comment: A Not Detected (negative) test result for this test means that SARS- CoV-2 RNA was not present in the specimen above the limit of detection. A negative result does not rule out the possibility of COVID-19 and should not be used as the sole basis for treatment or patient management decisions. ??If COVID-19 is still suspected, based on exposure history together with other clinical findings, re-testing should be considered in consultation with public health authorities. Laboratory test results should always be considered in the context of clinical observations and epidemiological data in making a final diagnosis and patient management decisions. Please review the Fact Sheets and FDA authorized labeling available for health care providers and patients using the following websites: https://www.Smartling.InsightSquared/home/Covid-19/HCP/QuestLDT/ fact-sheet.html https://www.Smartling.InsightSquared/home/Covid-19/Patients/QuestLDT/ fact-sheet.html ?? This test has been authorized by the FDA under an Emergency Use Authorization (EUA) for use by authorized laboratories. Due to the current public health emergency, [facility] is receiving a high volume of samples from a wide variety of swabs and media for COVID-19 testing. In order to serve patients during this public health crisis, samples from appropriate clinical sources are being tested. Negative test results derived from specimens received in non-commercially manufactured viral collection and transport media, or in media and sample collection kits not yet authorized by FDA for COVID-19 testing should be cautiously evaluated and the patient potentially subjected to extra precautions such as additional clinical monitoring, including collection of an additional specimen. Methodology: ??Nucleic Acid Amplification Test (NAAT) includes RT-PCR or TMA ?? Additional information about COVID-19 can be found at the [facility] website: www.Watchfinder/Covid19. Microbiology Nasopharyngeal swab / Unknown 06/26/2020 7:41 AM EST 06/26/2020 7:41 AM EST Narrative [facility] - 06/30/2020 12:00 PM EST Performing Organization Information: ?Site ID: [id number] ?Name: [employer] ?Address: [address] [place] [address],[place] [address] ?Director: KAMILAH OVIEDO MD [facility]formed at [facility] License number [id number] Imtiaz Cosby PA-C BODY FLUIDS AND S TOOLS ORDERABLES [facility] documented in this encounter Visit Diagnoses Diagnosis Encounter for laboratory testing for COVID-19 virus documented in this encounter
--- OUTSIDE RECORDS SUMMARY | 2024-11-06 18:11 | XMS_ITS ---
Author Name [facility] Organization Unknown Encounters Encounter Type Encounter Reason Primary Diagnosis Location Date Emergency [facility] 09/03/2022 Care Team Organization Name Specialty Phone Email Start Date End [facility] the [facility] ([facility] 06/21/2024 07/25/2024 [facility]
--- OUTSIDE RECORDS SUMMARY | 2024-11-06 18:11 | XMS_ITS | Clinical Summary ---
Author Organization [facility] Address [address] [place] [address] Care Team Providers Care Computer Mechanic Name Role Phone Unavailable Primary Care Provider Unavailabl e Social History Tobacco Use Types Packs/Day Years Used Date Smoking Tobacco: Never Assessed Sex and Gender Information Value Date Recorded Sex Assigned at Not on file Gender Identity Not on file Sexual Orientation Not on file Plan of Treatment Health Maintenance Due Date Last Done Comments Hepatitis C Virus Screening 1959 HIV Screening 1972 DTaP/Tdap/Td Vaccines (1 - Tdap) 1978 Pneumococcal Vaccines 50+ (1 of 1 - PCV) 2009 Zoster (Shingles) Vaccine (1 of 2) 2009 COVID-19 Vaccine ( - 2023-2 5 season) 2024 RSV Vaccine 60 years and old er and Patients (1 - 1-dose 75+ series) 2034 Hepatitis B Vaccines Aged Out No long er eligible based on patient's age to complete this topic
--- OUTSIDE RECORDS SUMMARY | 2024-11-06 18:11 | XMS_ITS | Encounter Summary ---
Author Organization [facility] Address [address] [place] [address] Care Team Providers Care Price Analyst Name Role Phone Unavailable Primary Care Provider Unavailabl e Encounter Details Date Type Department Care Team (Late st Contact Info) Description 05/12/2020 Lab Requisition EM Lab DOC: Dustin Fry [address] [place] [phone] Imtiaz Cosby PA-C [address] [place] [address] [phone] Encounter for laboratory testing for COVID-19 virus [...] (REPORT) SARS COV-2 RNA (COVID-19), QUAL Routine 05/12/2020 3:35 PM EDT Encounter for laboratory testing for COVID-19 virus [ICD-10-CM] documented in this encounter Results * SARS CoV-2 RNA (COVID-19), Qual (05/12/2020 3:35 PM EDT) Pathologist [facility] SARS CoV 2 RNA, Qual NOT DETECTED NOT DETECTED 05/14/2020 12:00 AM EDT [facility] Comment: A Not Detected (negative) test result for this test means that SARS-CoV-2 RNA was not present in the specimen above the limit of detection. A negative result does not rule out the possibility of COVID-19 and should not be used as the sole basis for treatment or patient management decisions. If COVID-19 is still suspected, based on exposure history together with other clinical findings, re-testing should be considered in consultation with public health authorities. Laboratory test results should always be considered in the context of clinical observations and epidemiological data in making a final diagnosis and patient management decisions. REFERENCE RANGE: ??NOT DETECTED This patient specimen was tested using an FDA EUA pooling method. Negative results from pooled testing should not be treated as definitive. ??If the patient's clinical signs and symptoms are inconsistent with a negative result or results are necessary for patient management, then the patient should be considered for individual testing. Specimens with low viral loads may not be detected in sample pools due to the decreased sensitivity of pooled testing. Please review the Fact Sheets and FDA authorized labeling available for health care providers and patients using the following websites: https://www.AVTherapeutics.E2E Networks/home/Covid-19/HCP/QuestLDTP/ fact-sheet https://www.AVTherapeutics.E2E Networks/home/Covid-19/Patients/QuestLDTP/ fact-sheet.html This test has been authorized by the FDA under an Emergency Use Authorization (EUA) for use by authorized laboratories. Due to the current public health emergency, [facility] is receiving a high volume of samples [...] about COVID-19 can be found at the [employer] website: www.QirraSound Technologies.E2E Networks/Covid19. Microbiology Nasopharyngeal swab / Unknown 05/12/2020 3:35 PM EDT 05/12/2020 3:35 PM EDT [facility] - 05/14/2020 12:00 AM EDT Performing Organization Information: ?Site ID: [id number] ?Name: [employer] ?Address: [address] [place] [address],[place] [address] ?Director: KAMILAH OVIEDO MD [facility]formed at [facility] License number [id number] Imtiaz Cosby PA-C BODY FLUIDS AND S TOOLS ORDERABLES Performing Organization Address City/State/[facility] Co de Phone Number [facility] documented in this encounter Visit Diagnoses Diagnosis Encounter for laboratory testing for COVID-19 virus documented in this encounter
--- OUTSIDE RECORDS SUMMARY | 2024-11-06 18:11 | XMS_ITS | Encounter Summary ---
Author Organization [facility] Address [address] [place] [address] Care Team Providers Care Plain Clothes Police Officer Name Role Phone Unavailable Primary Care Provider Unavailabl e Encounter Details Date Type Department Care Team (Late st Contact Info) Description 07/24/2020 Lab Requisition EM Lab DOC: Dustin Fry [address] [place] [phone] Imtiaz Cosby PA-C [address] [place] [address] [phone] Encounter for laboratory testing for COVID-19 virus [...] (REPORT) SARS COV-2 RNA (COVID-19), QUAL Routine 07/24/2020 7:43 AM EST Encounter for laboratory testing for COVID-19 virus [ICD-10-CM] documented in this encounter Results * SARS CoV-2 RNA (COVID-19), Qual (07/24/2020 7:43 AM EST) Pathologist [facility] SARS CoV 2 RNA, Qual NOT DETECTED NOT DETECTED 07/26/2020 12:00 PM EST [facility] Comment: A Not Detected (negative) [...] providers and patients using the following websites: https://www.Diamond Communications.Advanced BioNutrition/home/Covid-19/HCP/NAAT/fact-sheet2 https://www.Diamond Communications.Advanced BioNutrition/home/Covid-19/Patients/NAAT/ fact-sheet2 This test has been authorized by the FDA under an Emergency Use Authorization (EUA) for use by authorized laboratories. Due to the current public health emergency, [employer] is receiving a high volume of samples [...] about COVID-19 can be found at the [employer] website: www.Bizratings.com/Covid19. Microbiology Nasopharyngeal swab / Unknown 07/24/2020 7:43 AM EST 07/24/2020 7:43 AM EST Narrative [facility] - 07/26/2020 12:00 PM EST Performing Organization Information: ?Site ID: [id number] ?Name: [employer] ?Address: [address] [place] [address],[place] [address] ?Director: KAMILAH OVIEDO MD Performed at [facility] License number [id number] Imtiaz Cosby PA-C BODY FLUIDS AND S TOOLS ORDERABLES [facility] documented in this encounter Visit Diagnoses Diagnosis Encounter for laboratory testing for COVID-19 virus documented in this encounter
--- OUTSIDE RECORDS SUMMARY | 2024-11-06 18:11 | XMS_ITS | Encounter Summary ---
Author Organization [facility] Address [address] [place] [address] Care Team Providers Care Kindergarten Teacher Assistant Name Role Phone Unavailable Primary Care Provider Unavailabl e Encounter Details Date Type Department Care Team (Late st Contact Info) Description 03/06/2020 Lab Requisition EM Lab DOC: Dustin Fry [address] [place] [phone] Imtiaz Cosby PA-C [address] [place] [address] [phone] Encounter for laboratory testing for COVID-19 virus [...] (REPORT) SARS COV-2 RNA (COVID-19), QUAL Routine 03/06/2020 8:04 AM EDT Encounter for laboratory testing for COVID-19 virus [ICD-10-CM] documented in this encounter Results * SARS CoV-2 RNA (COVID-19), Qual (03/06/2020 8:04 AM EDT) Pathologist [facility] SARS CoV 2 RNA, Qual NOT DETECTED NOT DETECTED 03/07/2020 3:00 PM EDT [facility] Comment: A Not Detected (negative) test [...] providers and patients using the following websites: https://www.Jack On Block.Bookitit/home/Covid-19/HCP/QuestLDTP/ fact-sheet https://www.Medical Envelope/home/Covid19/Patients/QuestLDTP/ fact-sheet.html This test has been authorized by the FDA under an Emergency Use Authorization (EUA) for use by authorized laboratories. Due to the current public health emergency, [facility] is receiving a high volume of samples [...] Methodology: ??Nucleic Acid Amplification Test (NAAT) includes PCR or TMA ?? Additional information about COVID-19 can be found at the [employer] website: www.The Art Commission.Bookitit/Covid19. Microbiology Nasopharyngeal swab / Unknown 03/06/2020 8:04 AM EDT 03/06/2020 8:04 AM EDT [facility] - 03/07/2020 3:00 PM EDT Performing Organization Information: ?Site ID: [id number] ?Name: [employer] ?Address: [address] [place] [address],[place] [address] ?Director: KAMILAH OVIEDO MD [facility]formed at [facility] License number [id number] Imtiaz Cosby PA-C BODY FLUIDS AND S TOOLS ORDERABLES Performing Organization Address City/State/[facility] Co de Phone Number [facility] documented in this encounter Visit Diagnoses Diagnosis Encounter for laboratory testing for COVID-19 virus documented in this encounter
--- OUTSIDE RECORDS SUMMARY | 2024-11-06 18:11 | XMS_ITS | Clinical Summary ---
Author Organization [address] [place] [address] Address [address] [place] [address] Phone Care Team Providers Care Grinder Gear Name Role Phone Susan Randle NP Primary Care Provider [phone] Allergies No known active allergies Medications terazosin (HYTRIN) 5 mg capsule Take 1 capsule (5 mg total) by mouth at bedtime. Active vit A,C and D-iptyqi-xzzhqu ls (OCUVITE) 300 mcg-200 mg-27 mg-2 mg tablet Take 1,000 mg by mouth. 02/06/2019 Active coenzyme Q-10 30 mg capsule Take 100 mg by mouth 1 (one) time each day. Active omega-3 acid ethyl esters (LOVAZA) 1 gram capsule Take 1 capsule (1 g total) by mouth 2 (two) times a day. Active Family History Medical History Relation Name Comments Leukemia Father Breast cancer Mother Colon cancer Mother Relation Name Status Comments Father Mother Social History Tobacco Use Types Packs/Day Years Used Date Smoking Tobacco: Former Smokeless Tobacco: Never Tobacco Cessation:Counseling Given: Not Answered Alcohol Use Standard Drinks/Week Comments No 0 (1 standard drink = 0.6 oz pur e alcohol) Sex and Gender Information Value Date Recorded Sex Assigned at Not on file Legal Sex Male 5:24 PM EST Gender Identity Not on file Sexual Orientation Not on file Obstetrics History Last Filed Vital Signs Vital Sign Reading Time Taken Comments Blood Pressure 114/67 07/09/2024 2:19 PM EST Pulse 97 07/09/2024 2:19 PM EST Temperature 36.4 ??C (97.6 ??F) 07/09/2024 2:19 PM ES T Respiratory Rate - - Oxygen Saturation 97% 07/09/2024 2:19 PM EST Inhaled Oxygen Concentration - - Weight 88.9 kg (196 lb) 07/09/2024 2:19 PM EST Height 181.6 cm (5' 11.5 ) 07/09/2024 2:19 PM ES T Body Mass Index 26.96 07/09/2024 2:19 PM EST Plan of Treatment Upcoming Encounters Date Type Department Care Team (Late st Contact Info) Description 11/21/2024 12:[address] [facility] Endoscopy [address] [place] [phone] Bakari Willard MD [address] [address] 01/06/2025 2:00 PM EDT Office Visit [facility] Hematology Oncology [address] [place] [phone] Amanda Earl PA [address] [place] [address] Health Maintenance Due Date Last Done Comments COVID-19 Vaccine (#1) 1964 DTaP,Tdap,and Td Vaccines (1 - Tdap) 1978 Pneumococcal Vaccine: 50+ Years (1 of 2 - PCV) 1978 Pneumococcal Vaccine: Pediatrics (0 to 5 Years) and At-Risk Patients (6 to 64 Years) (1 of 2 - PCV) 1978 Zoster Vaccines (1 of 2) 1978 Abdominal Aortic Aneurysm (AAA) Screen 05/14/2024 Cholesterol Screening (Lipid Panel) 05/14/2024 Colorectal Cancer Screening: Colonoscopy 05/14/2024 Depression Screening 05/14/2024 Falls Risk Assessment 05/14/2024 Hepatitis C Screening 05/14/2024 Medicare Annual Wellness Visit 05/14/2024 Social Influencers of Health Screening 05/14/2024 RSV Immunization Adult Patients (1 - 1-dose 75+ series) 2034 Influenza Vaccine Completed 04/28/2024, 08/04/2019, 04/15/2018 HIB Vaccines Aged Out No longer eligi ble based on patient's age to complete this topic HPV Vaccines Aged Out No longer eligi ble based on patient's age to complete this topic Hepatitis A Vaccines Aged Out No long er eligible based on patient's age to complete this topic Hepatitis B Vaccines Aged Out No long er eligible based on patient's age to complete this topic IPV Vaccines Aged Out No longer eligi ble based on patient's age to complete this topic MMR Vaccines Aged Out No longer eligi ble based on patient's age to complete this topic Meningococcal ACWY Vaccine Aged Out N o longer eligible based on patient's age to complete this topic Meningococcal B Vacine Aged Out No lo nger eligible based on patient's age to complete this topic RSV Immunization Patients Under 20 months Aged Out No longer eligible b ased on patient's age to complete this topic Varicella Vaccines Aged Out No longer eligible based on patient's age to complete this topic [place] [id number] [employer] MEDICARE ADVANTAGE MEDICARE Care Teams Grinder Gear Relationship Specialty Start Date End Date Susan Randle NP [address] Henry Laurent [place] PCP - General 02/22/24
--- OUTSIDE RECORDS SUMMARY | 2024-11-06 18:11 | XMS_ITS | Encounter Summary ---
Author Organization [facility] Address [address] [place] [address] Care Team Providers Care Skirt Panel Assembler Name Role Phone Unavailable Primary Care Provider Unavailabl e Encounter Details Date Type Department Care Team (Late st Contact Info) Description 04/10/2020 Lab Requisition EM Lab DOC: Dustin Fry [address] [place] [phone] Imtiaz Cosby PA-C [address] [place] [address] [phone] Encounter for laboratory testing for COVID-19 virus [...] (REPORT) SARS COV-2 RNA (COVID-19), QUAL Routine 04/10/2020 7:49 AM EDT Encounter for laboratory testing for COVID-19 virus [ICD-10-CM] documented in this encounter Results * SARS CoV-2 RNA (COVID-19), Qual (04/10/2020 7:49 AM EDT) [facility] SARS CoV 2 RNA, Qual NOT DETECTED NOT DETECTED 04/12/2020 9:00 AM EDT [facility] [...] providers and patients using the following websites: https://www.PayrollHero.First Opinion/home/Covid-19/HCP/QuestLDTP/ fact-sheet https://www.Ingeniatrics/home/Covid-19/Patients/QuestLDTP/ fact-sheet.html This test has been authorized by the FDA under an Emergency Use Authorization (EUA) for use by authorized laboratories. Due to the current public health emergency, [employer] is receiving a high volume of samples [...] about COVID-19 can be found at the [employer] website: www.Kitchenbug.First Opinion/Covid19. Microbiology Nasopharyngeal swab / Unknown 04/10/2020 7:49 AM EDT 04/10/2020 7:49 AM EDT [facility] 04/12/2020 9:00 AM EDT Performing Organization Information: ?Site ID: [id number] ?Name: [employer] ?Address: [address] [place] [address],[place] [address] ?Director: KAMILAH OVIEDO MD [facility]formed at [facility] License number [id number] Imtiaz Cosby PA-C BODY FLUIDS AND S TOOLS ORDERABLES Performing Organization Address City/State/[facility] Co de Phone Number [facility] documented in this encounter Visit Diagnoses Diagnosis Encounter for laboratory testing for COVID-19 virus documented in this encounter
--- OUTSIDE RECORDS SUMMARY | 2024-11-06 18:11 | XMS_ITS | Clinical Summary ---
Author Organization [facility] Address [address] [place] [address] Care Team Providers Care Sash Installer Name Role Phone Susan Randle Primary Care Provider [phone] Allergies No known active allergies Medications Medication Sig Dispensed Refills Start Date End Date Status sertraline (ZOLOFT) 25 MG tablet Take 1 tablet (25 mg total) by mouth daily. 0 Active tamsulosin (FLOMAX) 0.4 MG CAPS Take 0.4 mg by mouth daily. 0 Active Multiple Vitamin (MULTI VITAMIN MENS PO) Take by mouth. 0 Active vitamin C (ASCORBIC ACID) 500 MG tablet Take 500 mg by mouth daily. 0 Active terazosin (HYTRIN) 5 MG capsule Take 1 capsule (5 mg total) by mouth every night at bedtime. 0 Active Family History Medical History Relation Name Comments Leukemia Father Breast cancer Mother Colon cancer Mother Relation Name Status Comments Father Mother Social History Tobacco Use Types Packs/Day Years Used Date Smoking Tobacco: Former Smokeless Tobacco: Never Tobacco Cessation:Counseling Given: Not Answered Comments:Quit tob in early s Alcohol Use Standard Drinks/Week Comments No 0 (1 standard drink = 0.6 oz pure alcohol) Quit ETOH in early s; used to drink on a regular basis Sex and Gender Information Value Date Recorded Sex Assigned at Male 02/02/2024 10:57 AM EDT Gender Identity Not on file Sexual Orientation Not on file Job Start Date Occupation Industry Not on file Not on file Not on file Last Filed Vital Signs Vital Sign Reading Time Taken Comments Blood Pressure 105/68 02/22/2024 11:17 AM EDT Pulse 90 02/22/2024 11:17 AM EDT Temperature 36.7 ??C (98 ??F) 02/22/2024 11:17 AM EDT Respiratory Rate - - Oxygen Saturation 98% 02/22/2024 11:17 AM EDT Inhaled Oxygen Concentration - - Weight 83 kg (183 lb) 02/22/2024 11:17 AM EDT Height 180.3 cm (5' 11 ) 12/17/2018 2:50 PM EDT Body Mass Index 25.52 12/17/2018 2:50 PM EDT Plan of Treatment Health Maintenance Due Date Last Done Comments Hepatitis C Screening 1959 COVID-19 Vaccine (#1) 1964 Pneumococcal Vaccine (1 of 2 - PCV) 1965 Pneumococcal Vaccine (1 of 2 - PCV) 1965 Depression Screening 1971 BMI Counseling 1977 Preventative Health Evaluation 1977 DTap / Tdap / Td (1 - Tdap) 1978 Shingrix-Zoster Vaccine (1 of 2) 1978 Colon Cancer Screening (Colonoscopy) 2004 RSV Adult > 60+ Yrs or Pregn ant (1 - Risk 60-74 years 1-dose series) 2019 Fall Risk Assessment 2024 Influenza Vaccine (#1) 2024 Hepatitis B Vaccines Aged Out No long er eligible based on patient's age to complete this topic RSV Ped < 20 months Aged Out No longe r eligible based on patient's age to complete this topic Care Teams Sash Installer Relationship Specialty Start Date End Date Susan Randle [address] [place] [address] PCP - General Family Medicine 7/18/24
[2024-11-06 19:44] LABS: Prostate Specific Antigen 3.82 ng/mL (<0.05-4.0)
== END 2024-11-06 16:58 | disposition home or self-care (01) ==
LOC: HO.LAB 16:57
PROVIDERS: Visit Provider Urology
DX: R97.20 Elevated prostate specific antigen [PSA] (principal); Z12.5 Encounter for screening for malignant neoplasm of prostate
CPT/HCPCS: 36415; 84153

== ENCOUNTER 2024-11-15 14:48 | Outpatient (AMB) | payer MEDICARE, SELFPAY ==
--- NOTE | 2024-11-15 14:52 | A.OFFVIS_ITS ---
Intake Visit Reasons: 1y/PSA Intake Note: Patient is present for 1Y/PSA Urology Medication:TERAZOSIN Antibiotic Allergy:NONE Blood Thinner:NONE Regulator Tester Required: No Allergies No Known Allergies Allergy (Verified 11/15/24 14:55) HPI Comments Details: Demetrio is a very pleasant male. He is a patient of Dr Yarbrough. He seen for the following urologic conditions - lower urinary tract symptoms - postvoid dribbling Yearly review Slight PSA rise now off finasteride Underwent TUIP 03/29 Has noticed some bladder instability Increasing urgency and frequency Increased nocturia Will trial Cialis plan for office cystoscopy Bladder stone Imaging - 03/29 There is a 1.6 cm mobile stone noted within the bladder. Bilateral ureteral jets are demonstrated. Prevoid bladder volume is 314 mL. Postvoid bladder volume is 100 mL. The prostate gland measures 6.1 x 4.9 x 5.0 cm for a volume of 78 mL Lower urinary tract symptoms Primarily nocturia with some degree of bladder outlet obstruction - progressive with increased nocturia Current medications - terazosin and finasteride Prior medications include tamsulosin PSA 2.5-3.5 09/28 2.9, 08/29 5.1, 10/27 3.3, 11/28 2.6, 11/29 3.8 Prior ETOH use PFSH Medical History Back pain Depression Elevated prostate specific antigen [PSA] Surgical History H/O colonoscopy History of arthroscopic knee surgery History of prostate biopsy Family History Father No problems noted. Mother Breast cancer Social History Patient Tobacco Use Status: Never used Tobacco Tobacco use type: Cigar Review of Systems Const Denies chills and Denies fever(s) Card Reports no additional complaints and Denies syncope Resp Denies cough GI Denies abdominal pain and Denies heartburn Reports as per HPI and Denies change in libido Neuro Denies syncope Psych Denies change in libido Endo Denies change in libido Physical Exam Const General: cooperative, healthy appearing, comfortable and no acute distress Orientation/consciousness: patient oriented x3 HEENT Face and sinus: Yes normal facial exam Mouth: moist mucous membranes Neck Neck: Yes normal visual inspection, Yes full ROM and Yes trachea midline Chest Chest palpation & inspection: normal inspection of the chest Resp Effort & Inspection: normal respiratory effort, able to speak in complete sentences and no respiratory distress GI Inspection: Yes normal to inspection Back/Spine/Pelvis Cervical Spine: normal cervical lordosis Thoracic/Lumbar Spine: thoracic and lumbar spine normal to inspection Skin General skin exam: no rashes or lesions noted Neuro General: patient oriented x3, gait normal, tone normal and moves all extremities Extrem General: Yes normal to inspection and Yes capillary refill normal Assessment & Plan Assessment & Plan (1) Bladder instability: Code(s): N32.89 - Other specified disorders of bladder Category: Medical Plan office cysto Medications: New tadalafil [id number] [facility] [id number] Member [id number] 5 mg PO DAILY 90 days 90 tabs 1RF sexual activity N32.0 - Bladder-neck obstruction, N32.89 - Other specified disorders of bladder Patient Instructions: This note is constructed using voice recognition software. While every effort has been made to ensure accuracy photography teacher errors may have been included. Imaging studies, laboratory and physical exam results were discussed and reviewed in detail. No major barriers to patient understanding were identified. An opportunity to ask questions regarding the treatment plan was provided. All questions were answered. The patient expressed understanding and agreement with the above treatment plan. The patient is aware they should contact our office by phone for worsening of their current condition or the appearance of new urologic symptoms. Compliance is encouraged with any medications and followup testing that is ordered. It is a privilege to participate in the urologic care of your patient. If you have any questions or concerns regarding treatment for the above conditions, or other urologic issues, please do not hesitate to contact me. The office telephone contact is [phone]. Sincerely, Dr Irvin Tavares MD, [facility] - Urology Compassionate Specialist Care for the Genitourinary System Coding Level of Care Code Est Pt Level 4 (52859) Diagnoses Bladder instability N32.89
--- OUTSIDE RECORDS SUMMARY | 2024-11-15 15:00 | XMS_ITS | Encounter Summary ---
Author Organization [facility] Address [address] [place] [address] Care Team Providers Care Consulting Services Project Manager Name Role Phone Unavailable Primary Care Provider Unavailabl e Encounter Details Date Type Department Care Team (Late st Contact Info) Description 07/24/2020 Lab Requisition EM Lab DOC: Dustin Fry [address] [place] [phone] Imtaiz Cosby PA-C [address] [place] [address] [phone] Encounter for laboratory testing for COVID-19 virus [...] (COVID-19), Qual (07/24/2020 7:43 AM EST) Pathologist [facility] SARS CoV 2 RNA, Qual NOT DETECTED NOT DETECTED 07/26/2020 12:00 PM EST [facility] Comment: A Not Detected (negative) test [...] providers and patients using the following websites: https://www.Clear Story Systems.Chatosity/home/Covid-19/HCP/NAAT/fact-sheet2 https://www.Clear Story Systems.Chatosity/home/Covid-19/Patients/NAAT/ fact-sheet2 This test has been authorized by the FDA under an Emergency Use Authorization (EUA) for use by authorized laboratories. Due to the current public health emergency, [employer] is receiving a high volume of samples [...] about COVID-19 can be found at the [employer] website: www.Health Market Science/Covid19. Microbiology Nasopharyngeal swab / Unknown 07/24/2020 7:43 AM EST 07/24/2020 7:43 AM EST Narrative [facility] - 07/26/2020 12:00 PM EST Performing Organization Information: ?Site ID: [id number] ?Name: [employer] ?Address: [address] [place] [address],[place] [address] ?Director: KAMILAH OVIEDO MD Performed at [facility] License number [id number] Imtiaz Cosby PA-C BODY FLUIDS AND S TOOLS ORDERABLES [facility] documented in this encounter Visit Diagnoses Diagnosis Encounter for laboratory testing for COVID-19 virus documented in this encounter
--- OUTSIDE RECORDS SUMMARY | 2024-11-15 15:00 | XMS_ITS | Encounter Summary ---
Author Organization [facility] Address [address] [place] [address] Care Team Providers Care Accounting Supervisor Name Role Phone Unavailable Primary Care Provider Unavailabl e Encounter Details Date Type Department Care Team (Late st Contact Info) Description 06/26/2020 Lab Requisition EM Lab DOC: Dustin Fry [address] [place] [phone] Imtiaz Cosby PA-C [address] [place] [phone] Encounter for laboratory testing for COVID-19 virus [...] (COVID-19), Qual (06/26/2020 7:41 AM EST) Pathologist [facility] SARS CoV 2 RNA, Qual NOT DETECTED NOT DETECTED 06/30/2020 12:00 PM EST [facility] Comment: A Not Detected (negative) [...] providers and patients using the following websites: https://www.Community Cash.CasterStats/home/Covid-19/HCP/QuestLDT/ fact-sheet.html https://www.Community Cash.CasterStats/home/Covid-19/Patients/QuestLDT/ fact-sheet.html ?? This test has been authorized by the FDA under an Emergency Use Authorization (EUA) for use by authorized laboratories. Due to the current public health emergency, [employer] is receiving a high volume of samples [...] about COVID-19 can be found at the [employer] website: www.Hangtime/Covid19. Microbiology Nasopharyngeal swab / Unknown 06/26/2020 7:41 AM EST 06/26/2020 7:41 AM EST Narrative [facility] - 06/30/2020 12:00 PM EST Performing Organization Information: ?Site ID: [id number] ?Name: [employer] ?Address: [address] [place] [address],[place] [address] ?Director: KAMILAH OVIEDO MD Performed at [facility] License number [id number] Imtiaz Cosby PA-C BODY FLUIDS AND S TOOLS ORDERABLES [facility] documented in this encounter Visit Diagnoses Diagnosis Encounter for laboratory testing for COVID-19 virus documented in this encounter
--- OUTSIDE RECORDS SUMMARY | 2024-11-15 15:00 | XMS_ITS | Encounter Summary ---
Author Organization [facility] Address [address] [place] [address] Care Team Providers Care Auto Slip Cover Installer Name Role Phone Unavailable Primary Care Provider Unavailabl e Encounter Details Date Type Department Care Team (Late st Contact Info) Description 04/10/2020 Lab Requisition EM Lab DOC: Dustin Fry [address] [place] [phone] Imtiaz Cosby PA-C [address] [place] [address] [phone] Encounter for laboratory testing for COVID-19 virus [...] RNA (COVID-19), Qual (04/10/2020 7:49 AM EDT) [facility] SARS CoV 2 RNA, Qual NOT DETECTED NOT DETECTED 04/12/2020 9:00 AM EDT [facility] Comment: A Not Detected (negative) [...] providers and patients using the following websites: https://www.Tempeest.Sonendo/home/Covid-19/HCP/QuestLDTP/ fact-sheet https://www.Commerce Guys/home/Covid-19/Patients/QuestLDTP/ fact-sheet.html This test has been authorized by the FDA under an Emergency Use Authorization (EUA) for use by authorized laboratories. Due to the current public health emergency, [employer] is receiving a high volume of samples [...] about COVID-19 can be found at the [employer] website: www.GetJob.Sonendo/Covid19. Microbiology Nasopharyngeal swab / Unknown 04/10/2020 7:49 AM EDT 04/10/2020 7:49 AM EDT [facility] 04/12/2020 9:00 AM EDT Performing Organization Information: ?Site ID: [id number] ?Name: [employer] ?Address: [address] [place] [address],[place] [address] ?Director: KAMILAH OVIEDO MD [facility]formed at [facility] License number [id number] Imtiaz Cosby PA-C BODY FLUIDS AND S TOOLS ORDERABLES Performing Organization Address City/State/[facility] Co de Phone Number [facility] documented in this encounter Visit Diagnoses Diagnosis Encounter for laboratory testing for COVID-19 virus documented in this encounter
--- OUTSIDE RECORDS SUMMARY | 2024-11-15 15:00 | XMS_ITS | Encounter Summary ---
Author Organization [facility] Address [address] [place] [address] Care Team Providers Care Implementation Services Analyst Name Role Phone Unavailable Primary Care Provider Unavailabl e Encounter Details Date Type Department Care Team (Late st Contact Info) Description 05/12/2020 Lab Requisition EM Lab DOC: Dustin Fry [address] [place] [phone] Imtiaz Cosby PA-C [address] [place] [address] [phone] Encounter for laboratory testing for COVID-19 virus [...] (COVID-19), Qual (05/12/2020 3:35 PM EDT) Pathologist [facility] SARS CoV 2 RNA, Qual NOT DETECTED NOT DETECTED 05/14/2020 12:00 AM EDT [facility] Comment: A Not Detected (negative) [...] providers and patients using the following websites: https://www.Octonius.gulu.com/home/Covid-19/HCP/QuestLDTP/ fact-sheet https://www.Octonius.gulu.com/home/Covid-19/Patients/QuestLDTP/ fact-sheet.html This test has been authorized by the FDA under an Emergency Use Authorization (EUA) for use by authorized laboratories. Due to the current public health emergency, [employer] is receiving a high volume of samples [...] about COVID-19 can be found at the [employer] website: www.mmCHANNEL.gulu.com/Covid19. Microbiology Nasopharyngeal swab / Unknown 05/12/2020 3:35 PM EDT 05/12/2020 3:35 PM EDT [facility] - 05/14/2020 12:00 AM EDT Performing Organization Information: ?Site ID: [id number] ?Name: [employer] ?Address: [address] [place] [address],[place] [address] ?Director: KAMILAH OVIEDO MD Performed at [facility] License number [id number] Imtiaz Cosby PA-C BODY FLUIDS AND S TOOLS ORDERABLES Performing Organization Address City/State/[facility] Co de Phone Number [facility] documented in this encounter Visit Diagnoses Diagnosis Encounter for laboratory testing for COVID-19 virus documented in this encounter
--- OUTSIDE RECORDS SUMMARY | 2024-11-15 15:00 | XMS_ITS | Encounter Summary ---
Author Organization [facility] Address [address] [place] [address] Care Team Providers Care Computer Numeric Control Setter Name Role Phone Unavailable Primary Care Provider Unavailabl e Encounter Details Date Type Department Care Team (Late st Contact Info) Description 03/06/2020 Lab Requisition EM Lab DOC: Dustin Fry [address] [place] [phone] Imtiaz Cosby PA-C [address] [place] [address] [phone] Encounter for laboratory testing for COVID-19 virus [...] (COVID-19), Qual (03/06/2020 8:04 AM EDT) Pathologist [facility] SARS CoV 2 RNA, Qual NOT DETECTED NOT DETECTED 03/07/2020 3:00 PM EDT [facility] Comment: A Not Detected (negative) test result [...] providers and patients using the following websites: https://www.CoinPass.Baynote/home/Covid-19/HCP/QuestLDTP/ fact-sheet https://www.LensVector/home/Covid19/Patients/QuestLDTP/ fact-sheet.html This test has been authorized by the FDA under an Emergency Use Authorization (EUA) for use by authorized laboratories. Due to the current public health emergency, [employer] is receiving a high volume of samples [...] about COVID-19 can be found at the [employer] website: www.Catacel.Baynote/Covid19. Microbiology Nasopharyngeal swab / Unknown 03/06/2020 8:04 AM EDT 03/06/2020 8:04 AM EDT [facility] - 03/07/2020 3:00 PM EDT Performing Organization Information: ?Site ID: [id number] ?Name: [employer] ?Address: [address] [place] [address],[place] [address] ?Director: KAMILAH OVIEDO MD [facility]formed at [facility] License number [id number] Imtiaz Cosby PA-C BODY FLUIDS AND S TOOLS ORDERABLES Performing Organization Address City/State/[facility] Co de Phone Number [facility] documented in this encounter Visit Diagnoses Diagnosis Encounter for laboratory testing for COVID-19 virus documented in this encounter
--- OUTSIDE RECORDS SUMMARY | 2024-11-15 15:00 | XMS_ITS | Clinical Summary ---
Author Organization [facility] Address [address] [place] [address] Care Team Providers Care Welding Engineer Name Role Phone Unavailable Primary Care Provider [...]
--- OUTSIDE RECORDS SUMMARY | 2024-11-15 15:00 | XMS_ITS | Clinical Summary ---
Author Organization [facility] Address [address] [place] [address] Care Team Providers Care Masonry Instructor Name Role Phone Susan Randle Primary Care Provider [phone] Allergies No known active allergies Medications Medication [...] age to complete this topic Care Teams Masonry Instructor Relationship Specialty Start Date End Date Susan Randle [address] [place] [address] PCP - General Family Medicine 7/18/24
--- OUTSIDE RECORDS SUMMARY | 2024-11-15 15:00 | XMS_ITS | Clinical Summary ---
Author Organization [facility] Address [address] [place] [address] Phone Care Team Providers Care Coal Pulverizer Operator Name Role Phone Susan Randle NP Primary Care Provider [phone] Allergies No known active allergies Medications terazosin (HYTRIN) 5 mg capsule Take 1 capsule (5 mg total) by mouth at bedtime. Active vit A,C and R-swrnnh-ihewzw ls (OCUVITE) 300 mcg-200 mg-27 mg-2 mg tablet Take 1,000 mg by mouth. 9 Active coenzyme Q-10 30 mg capsule Take 100 mg by mouth 1 (one) time each day. Active omega-3 acid ethyl esters (LOVAZA) 1 gram capsule Take 1 capsule (1 g total) by mouth 2 (two) times a day. Active polyethylene glycol (Golytely) 236-22.74-6.74 -5.86 gram solution Take 4L by mouth once for one dose. May substitue any PEG. Starting at 6PM the night before your procedure drink 1 8oz glasses at your own pace until you complete half of the gallon. Finish 2nd half of the gallon 5 hours before your procedure. 4000 mL 5 Active bisacodyL (DULCOLAX) 5 mg EC tablet Take 2 tablets by mouth right before beginning bowel prep. See instructions provided by the office 2 tablet 5 Active garlic 1,000 mg capsule 0 Refills, Maintenance, 02/06/19 11:37:06 EDT 9 Active ascorbic acid (VITAMIN C) 500 mg tablet Take 1 tablet (500 mg total) by mouth 1 (one) time each day. Elizabeth-c Active Family History Medical History Relation Name [...] EST Inhaled Oxygen Concentration - - Weight 88.5 kg (195 lb) 11/13/2024 2:00 PM EDT Height 180.3 cm (5' 11 ) 11/13/2024 2:00 PM EDT Body Mass Index 27.2 11/13/2024 2:00 PM EDT Plan of Treatment Upcoming Encounters Date Type Department Care Team (Late st Contact Info) Description 11/21/2024 1:00 PM EDT Hospital Encounter [facility] Endoscopy [address] [place] [address] Bakari Willard MD [address] [address] 01/06/2025 2:00 PM EDT Office Visit [facility] Hematology Oncology [address] [place] [address] Amanda Earl PA [address] [place] [address] Health Maintenance Due Date Last Done Comments [...] age to complete this topic Meningococcal B Vaccine Aged Out No l onger eligible based on patient's age to complete this topic RSV Immunization Patients Under 20 months Aged Out No longer eligible b ased on patient's age to complete this topic Varicella Vaccines Aged Out No longer eligible based on [place]'s [place] [id number] [employer] MEDICARE ADVANTAGE MEDICARE Care Teams Coal Pulverizer Operator Relationship Specialty Start Date End Date Susan Randle NP [address] [place] PCP - General 02/22/24
== END 2024-11-15 15:32 | disposition home or self-care (01) ==
PROVIDERS: PCP Physician Assistant; Visit Provider Urology
DX: N32.89 Other specified disorders of bladder (principal)
CPT/HCPCS: 99214

== ENCOUNTER → 2024-11-15 14:48 | Outpatient (BNVA) | payer MEDICARE, SELFPAY | PROVIDERS: PCP Physician Assistant; Visit Provider Urology | DX: N32.89 Other specified disorders of bladder (principal); N32.0 Bladder-neck obstruction; N39.43 Post-void dribbling | CPT/HCPCS: 99212 ==